=== PATIENT | female | born 1980 | race Caucasian/White ===

== ENCOUNTER 2024-02-04 11:32 | Outpatient (CLI) | payer BC | END 2024-02-04 11:33 | disposition home or self-care (01) | LOC: BICRAD 11:32 | PROVIDERS: ATTEND Physician Assistant Medical | DX: K21.9 Gastro-esophageal reflux disease without esophagitis (principal); R10.10 Upper abdominal pain, unspecified | CPT/HCPCS: 72070 ==

== ENCOUNTER 2024-06-23 11:08 | Outpatient (CLI) | payer OTHER | END 2024-06-23 11:09 | disposition home or self-care (01) | LOC: RAD 11:08 | PROVIDERS: ATTEND Internal Medicine Gastroenterology | DX: R13.10 Dysphagia, unspecified (principal); K21.9 Gastro-esophageal reflux disease without esophagitis; G70.00 Myasthenia gravis without (acute) exacerbation | CPT/HCPCS: 74230 ==

== ENCOUNTER 2024-07-16 07:46 | Outpatient (CLI) | payer BC | END 2024-07-16 07:47 | disposition home or self-care (01) | LOC: NM 07:46 | PROVIDERS: ATTEND Internal Medicine Gastroenterology | DX: K21.9 Gastro-esophageal reflux disease without esophagitis (principal); R11.10 Vomiting, unspecified | CPT/HCPCS: 78264; A9541 ==